=== PATIENT | female | born 1945 | race Caucasian/White ===

== ENCOUNTER → 2016-11-01 | Outpatient (CLI) | payer MEDICARE, MEDICAID ==
[~2016-11-01] MED LIST: ACETAMINOPHEN500 M3 PO; ADVIL200 MG PO; ALEVE220 MG PO; AMARYL 4MG. TAB4 MG PO; ASPIRIN 325MG325 MG PO; ASPIRIN CHILDRE81 MG PO; ATIVAN1 M1 PO; ATIVAN1 MG PO; BACTRIM DS 8001 TA1 PO; CARVEDILOL6.25 MG PO; CIPRO 500MG TA500 MG PO; CIPROFLOXACIN500 MG PO; CITALOPRAM20 MG PO; CLARITIN10 MG PO; CLINDAMYCIN HC300 MG PO; COZAAR100 MG PO; Docusate Sodiu100 MG PO; FERROUS SULFAT325 M2 PO; GABAPENTIN 600600 MG PO; GABAPENTIN300 MG PO; GUAIFENESIN LA600 MG PO; HUMULIN 70100 UNITS/ SC; HYDROCODONE 7.51 TAB PO; IMDUR 30MG. TAB30 MG PO; IMITREX 25MG TA25 MG PO; IPRATROPIUM BROM3 M2 IH; IRON TABLETS325 MG PO; KEPPRA 500 MG500 MG PO; LACTULOSE10 GM/152 PO; LACTULOSE20 GM/30 M PO; LASIX40 MG PO; LEVAQUIN500 MG PO; LIDODERM 5% PA1 EACH TD; LOPERAMIDE2 M1 PO; LORTAB 5/500 501 TAB PO; MAGMTHWSH PO; MAXZIDE 25 MG-31 TA1 PO; MEDROL 4MG. DOSE4 MG PO; MELOXICAM15 MG PO; MELOXICAM7.5 MG PO; METFORMIN1000 MG PO; MIRALAX17 GM/DOSE PO; MUCINEX600 M1 PO; MUCINEX600 MG PO; MULTI VITAMINS1 TA1 PO; MULTI-VITAMIN1 EACH PO; NEURONTIN 100100 MG OR; NITROQUICK0.4 MG SL; NITROSTAT 0.4M0.4 MG SL; NOVOLOG MI100 UNITS/ SC; NOVOLOG MIX 70/10 ML SC; OMEGA 31000 MG PO; OMEGA-31000 MG PO; OMEPRAZOLE20 MG PO; ONGLYZA5 MG PO; OXYGEN2; PERCOCET 325 MG1 TA3 PO; PERCOCET 5/3251 EACH PO; PRILOSEC OTC20 MG PO; QUALITY CHOICE10 M2 PO; REGLAN 5MG TABLE5 MG PO; RESTORIL 30MG C30 MG PO; RESTORIL30 MG PO; ROBAFEN100 MG/5 M PO; ROBITUSSIN100 MG/5 M PO; SENNA LAXATIVE8.6 MG PO; SENOKOT TABLET1 EACH PO; TEMAZEPAM30 M1 FT; TRAMADOL 50MG T50 M1 PO; TRAMADOL 50MG T50 MG PO; TRAZODONE100 MG PO; TRIAMCINOL15 GM/TUBE TP; TYLENOL 325MG325 MG PO; Tramadol HCl50 MG PO; VERAPAMIL SR 1120 MG PO; VERAPAMIL120 MG PO; ZOFRAN ODT4 MG PO; ZOFRAN4 MG PO
[2016-11-01 16:53] LABS: URINE BILIRUBIN - DIPSTICK NEGATIVE (NEG); URINE BLOOD NEGATIVE (NEG)
== END ==
LOC: LAB 16:34
DX: R10.9 Unspecified abdominal pain (principal)

== ENCOUNTER → 2016-11-20 | Outpatient (CLI) | payer MEDICARE, MEDICAID ==
[2016-11-20 10:52] LABS: STOOL OCCULT BLOOD NEGATIVE (NEG)
== END ==
LOC: LAB 10:14
PROVIDERS: Internal Medicine
DX: R10.9 Unspecified abdominal pain (principal); D64.9 Anemia, unspecified

== ENCOUNTER 2017-02-10 10:40 | Outpatient (CLI) | payer MEDICARE, MEDICAID ==
[~2017-02-10 10:40] MED LIST changes: +ABILIFY2 MG PO; +AYR SALINE NASA NS; +BENTYL GENERIC10 MG PO; +CHEST CONGESTI400 MG PO; +CYANOCOBAL1000 MCG/M PO; +CYMBALTA60 MG PO; +DIPHENHYDRAMINE25 M1 PO; +FERROUS GLUCON324 M1 PO; +FISH OIL1000 MG PO; +HYDROCODONE/ACE1 TA5 PO; +IMDUR 60MG. TAB60 MG PO; +KONSYL6 GM/DOSE PO; -MUCINEX600 M1 PO; +SIMVASTATIN10 MG PO; +SYSTANE 0.3-0.1 EACH OP; +VITAMIN D1000 IU PO; +ZYRTEC ALLERGY10 MG PO
[2017-02-10 11:07] VITALS: BP 131/63
[2017-02-10 11:37] VITALS: BP 129/61
[2017-02-10 11:50] VITALS: BP 131/67
== END 2017-02-10 12:15 | disposition home or self-care (01) ==
LOC: COP 10:40
DX: D50.9 Iron deficiency anemia, unspecified (principal); T45.4X5A Adverse effect of iron and its compounds, initial encounter
CPT/HCPCS: J1756

== ENCOUNTER 2017-02-17 10:00 | Outpatient (CLI) | payer MEDICARE, MEDICAID ==
[2017-02-17 10:21] VITALS: BP 141/56
[2017-02-17 10:51] VITALS: BP 136/54
[2017-02-17 11:20] VITALS: BP 138/61
== END 2017-02-17 11:30 | disposition home or self-care (01) ==
LOC: COP 10:00
DX: D50.9 Iron deficiency anemia, unspecified (principal); T45.4X5A Adverse effect of iron and its compounds, initial encounter
CPT/HCPCS: J1756

== ENCOUNTER 2017-02-24 09:30 | Outpatient (CLI) | payer MEDICARE, MEDICAID ==
[~2017-02-24] VITALS: Ht 172.7 cm; Wt 141.5 kg
[2017-02-24 10:05] VITALS: BP 155/67
[2017-02-24 10:50] VITALS: BP 158/70
== END 2017-02-24 11:00 | disposition home or self-care (01) ==
LOC: COP 09:30
DX: D50.9 Iron deficiency anemia, unspecified (principal); T45.4X5A Adverse effect of iron and its compounds, initial encounter
CPT/HCPCS: J1756